=== PATIENT | female | born 1965 | race American Indian/Alaskan Native ===

== ENCOUNTER 2016-07-26 03:33 | Emergency (ER) | payer MEDICAID ==
[2016-07-26 04:52] VITALS: BP 132/73
--- NOTE | 2016-07-26 05:18 | Emergency Department Report ---
ED Lower Extremity HPI - General Chief Complaint: Extremity Injury, Lower Stated Complaint: LF HIP PAIN Time Seen by Provider: 07/26/16 05:12 Source: patient Mode of arrival: Ambulatory Limitations: No Limitations - History of Present Illness Initial Comments: This is a 50-year-old female that presents with left hip pain for the past month. Patient stated she fell on her left head last month but denies any medical attention. Patient stated stated has a normal gait. Denies any numbness or tingling sensation. Patient also states has arthritis to the extremities. Patient denies any chest pain, shortness of breath, hip deformity , nausea vomiting. Patient is well-nourished. Nontoxic appearance. No signs of any distress. MD Complaint: hip injury (left) -: Gradual, month(s) (1) Injury: Hip: Left Type of Injury: other (fall) Place: street/outdoors Severity: moderate Severity scale (0 -10): 10 Improves With: other (pain medication (as per patient)) Worsens With: nothing Context: fall Associated Symptoms: ambulatory. denies: snap/pop sensation, swelling, numbness , tingling, unable to bear weight, able to partially bear weight - Related Data Home Medications Medication Instructions Recorded Confirmed Last Taken Flexeril 10 MG TAB 1 tab PO DAILY 07/26/16 07/26/16 Unknown Pregabalin [Lyrica] 1 tab PO DAILY 07/26/16 07/26/16 Unknown traMADol 50 mg PO DAILY 07/26/16 07/26/16 Unknown Previous Rx's Medication Instructions Recorded Last Taken Type Ibuprofen [Motrin 600 MG tab] 600 mg PO Q8H PRN 5 Days 07/26/16 Unknown Rx Allergies Allergy/AdvReac Type Severity Reaction Status Date / Time No Known Allergies Allergy Unverified 07/26/16 04:53 ED Review of Systems ROS: Stated complaint: LF HIP PAIN Other details as noted in HPI Constitutional: denies: chills, fever Eyes: denies: eye pain, eye discharge, vision change ENT: denies: ear pain, throat pain Respiratory: denies: cough, shortness of breath, wheezing Cardiovascular: denies: chest pain, palpitations Endocrine: no symptoms reported Gastrointestinal: denies: abdominal pain, nausea, diarrhea Genitourinary: denies: urgency, dysuria, discharge Musculoskeletal: denies: back pain, joint swelling, arthralgia Skin: denies: rash, lesions Neurological: denies: headache, weakness, paresthesias Psychiatric: denies: anxiety, depression Hematological/Lymphatic: denies: easy bleeding, easy bruising ED Past Medical Hx - Past Medical History Hx Hypertension: Yes Hx Arthritis: Yes Hx Psychiatric Treatment: Yes (Depression) Additional medical history: Back Pain - Surgical History Past Surgical History?: No - Social History Smoking Status: Current Every Day Smoker Substance Use Type: None - Medications Home Medications: Home Medications Medication Instructions Recorded Confirmed Last Taken Type Flexeril 10 MG TAB 1 tab PO DAILY 07/26/16 07/26/16 Unknown History Ibuprofen [Motrin 600 MG tab] 600 mg PO Q8H PRN 5 Days 07/26/16 Unknown Rx Pregabalin [Lyrica] 1 tab PO DAILY 07/26/16 07/26/16 Unknown History traMADol 50 mg PO DAILY 07/26/16 07/26/16 Unknown History ED Physical Exam - General Limitations: No Limitations General appearance: alert, in no apparent distress - Head Head exam: Present: atraumatic, normocephalic - Eye Eye exam: Present: normal appearance - ENT ENT exam: Present: mucous membranes moist - Neck Neck exam: Present: normal inspection - Respiratory Respiratory exam: Present: normal lung sounds bilaterally. Absent: respiratory distress - Cardiovascular Cardiovascular Exam: Present: regular rate, normal rhythm. Absent: systolic murmur, diastolic murmur, rubs, gallop - GI/Abdominal GI/Abdominal exam: Present: soft, normal bowel sounds - Extremities Exam Extremities exam: Present: normal inspection - Expanded Lower Extremity Exam Left Hip exam: Present: normal inspection, full ROM. Absent: tenderness, swelling, abrasion, laceration, ecchymosis, deformity, crepidus, dislocation, erythema, external rotation, internal rotation, shortening, pelvic stability Upper Leg exam: Present: normal inspection, full ROM. Absent: tenderness, swelling Knee exam: Present: normal inspection, full ROM, full knee extension. Absent: tenderness, swelling Lower Leg exam: Present: normal inspection, full ROM. Absent: tenderness, swelling Ankle exam: Present: normal inspection, full ROM. Absent: tenderness, swelling Foot/Toe exam: Present: normal inspection, full ROM. Absent: tenderness, swelling Neuro vascular tendon exam: Present: no vascular compromise Gait: Positive: observed and normal - Back Exam Back exam: Present: normal inspection, full ROM. Absent: tenderness, CVA tenderness (R), CVA tenderness (L) - Neurological Exam Neurological exam: Present: alert, oriented X3, CN II-XII intact, normal gait - Psychiatric Psychiatric exam: Present: normal affect, normal mood - Skin Skin exam: Present: warm, dry, intact, normal color. Absent: rash ED Course Vital Signs 07/26/16 04:42 Temperature 97.8 F Pulse Rate 84 Respiratory 18 Rate Blood Pressure 132/73 Blood Pressure 132/73 [Left] O2 Sat by Pulse 100 Oximetry ED Lower Extremity MDM - Medical Decision Making ED course: This is a 50-year-old female that presents with chronic left hip pain 1- patient received ibuprofen 600 mg by mouth in ED. 2- x-ray was obtained of the left hip. Results: Normal 3- I notified the patient of the x-ray findings. I instructed the patient to follow up with orthopedic doctor if symptoms persist. 4- at the time of discharge the patient does not seem toxic or ill in appearance. Patient is ambulatory with no gait and amount today. Patient agrees to discharge plan. No further question noted by the patient. 5- patient was prescribed ibuprofen 600 milligrams at time of discharge. Critical care attestation.: If time is entered above; I have spent that time in minutes in the direct care of this critically ill patient, excluding procedure time. ED Disposition Clinical Impression: Hip strain Qualifiers: Encounter type: initial encounter Laterality: left Qualified Code(s): S76.012A - Strain of muscle, fascia and tendon of left hip, initial encounter Disposition: DISCHARGED TO HOME OR SELFCARE Is pt being admited?: No Does the pt Need Aspirin: No Condition: Stable Instructions: Ibuprofen (By mouth) Additional Instructions: Follow-up with an orthopedic in 3-5 days or if symptoms worsen. I have referred you to Dr. Palafox for orthopedic, but you may use anyone. Take ibuprofen 600 mg as prescribed as needed. Prescriptions: Ibuprofen [Motrin 600 MG tab] 600 mg PO Q8H PRN 5 Days PRN Reason: Pain Referrals: PRIMARY MD MERON [Primary Care Provider] - 3-5 Days RADHA PALAFOX MD [Staff Physician] - 3-5 Days [facility] [Outside] - 3-5 Days [facility] [Outside] - 3-5 Days Forms: Work/School Release Form(ED)
--- NOTE | 2016-07-26 05:44 | XRay Report ---
FINAL REPORT PROCEDURE: XR HIP 2-3V LT TECHNIQUE: LEFT hip radiographs, 2 views each, including AP view of the pelvis. HISTORY: fall lt hip pain COMPARISON: No prior studies are available for comparison. FINDINGS: Fracture (s) and/or Dislocation(s): None . Joint space(s): Normal. Soft tissues: Normal. Bone mineralization: Normal. Foreign bodies: None. IMPRESSION: Normal Examination.
== END 2016-07-26 06:19 | disposition home or self-care (01) ==
LOC: ED 03:33
DX: S76.012A Strain of muscle, fascia and tendon of left hip, initial encounter (principal); I10 Essential (primary) hypertension; F17.200 Nicotine dependence, unspecified, uncomplicated; X58.XXXA Exposure to other specified factors, initial encounter; Y93.9 Activity, unspecified; Y92.9 Unspecified place or not applicable; Y99.9 Unspecified external cause status
CPT/HCPCS: 99283

== ENCOUNTER 2016-09-13 15:02 | Emergency (ER) | payer MEDICAID ==
[2016-09-13 15:42] VITALS: BP 122/70
== END 2016-09-14 02:10 | disposition left against medical advice (07) ==
LOC: ED 15:02
DX: R42 Dizziness and giddiness (principal); Z53.21 Procedure and treatment not carried out due to patient leaving prior to being seen by health care provider
CPT/HCPCS: 93005; 93010

== ENCOUNTER 2016-10-10 04:46 | Emergency (ER) | payer MEDICAID ==
[2016-10-10 05:27] LABS: Basophils % (Auto) 1.2 % (0.0-1.8); Eosinophils % (Auto) 3.1 % (0.0-4.3); Hematocrit 34.6 % (30.3-42.9); Hemoglobin 11.5 gm/dl (10.1-14.3); Mean Corpuscular HGB Conc 33 % (30-34); Mean Corpuscular Hemoglobin 28 pg (28-32); Mean Corpuscular Volume 83 fl (79-97); Platelet Count 274 K/mm3 (140-440); Red Blood Count 4.18 M/mm3 (3.65-5.03); Red Cell Distribution Width 14.1 % (13.2-15.2); White Blood Count 7.7 K/mm3 (4.5-11.0)
[2016-10-10 05:41] LABS: INR 1.07 (0.87-1.13)
[2016-10-10 05:48] LABS: Anion Gap 20 mmol/L; BUN/Creatinine Ratio 23.33; Blood Urea Nitrogen 21 mg/dL (7-17); Calcium 9.5 mg/dL (8.4-10.2); Carbon Dioxide 22 mmol/L (22-30); Chloride 102.2 mmol/L (98-107); Glucose 91 mg/dL (65-100); Potassium 4.4 mmol/L (3.6-5.0); Sodium 140 mmol/L (137-145)
[2016-10-10 07:33] VITALS: BP 131/78
== END 2016-10-10 07:33 | disposition left against medical advice (07) ==
LOC: ED 04:46
DX: R07.9 Chest pain, unspecified (principal); Z53.21 Procedure and treatment not carried out due to patient leaving prior to being seen by health care provider
CPT/HCPCS: 36415; 80048; 84484; 85025; 85610; 85730; 93005; 93010

== ENCOUNTER 2017-01-03 00:40 | Emergency (ER) | payer MEDICAID ==
[2017-01-03] MEDS ORDERED: MYCOSTATIN TP ONE (05:22)
[2017-01-03] MEDS ORDERED: LET TOPICAL TP ONE (05:22)
[2017-01-03] MEDS ORDERED: CLEOCIN IM ONE (05:22)
[2017-01-03] MEDS ORDERED: DIFLUCAN PO ONE (05:22)
--- NOTE | 2017-01-03 05:22 | Emergency Department Report ---
- General Chief complaint: Skin Rash Stated complaint: ABD SKIN IRRITATED Time Seen by Provider: 01/03/17 05:18 Source: patient Mode of arrival: Ambulatory Limitations: No Limitations - History of Present Illness Initial comments: Patient reports that she has skin irritation on abdominal area. She denies any abdominal pain. She reports pain to rash side at 9 out of 10 with movement and touch. Denies any nausea vomiting or diarrhea. Denies diabetes. Patient says she has a history of arthritis hypertension and CVA and she is currently in a treatment center. She's had partial hysterectomy in the past. Denies any fever or chills. She says she is wash and air without so but it's not working and has odor to it. Denies any fever or chills. Denies any drainage from site. No medication use. MD complaint: rash Onset/Timin -: week(s) Tetanus Up to Date: yes Severity: severe Severity scale (0 -10): 9 (only with touch) Quality: burning Improves with: rest Worsens with: immobilization, movement Context: other (reports a rash to abdomen.) Associated symptoms: itching Treatments Prior to Arrival: other ( cleaning the area with water without any relief.) - Related Data Home Medications Medication Instructions Recorded Confirmed Last Taken Flexeril 10 MG TAB 1 tab PO DAILY 07/26/16 07/26/16 Unknown Pregabalin [Lyrica] 1 tab PO DAILY 07/26/16 07/26/16 Unknown traMADol 50 mg PO DAILY 07/26/16 07/26/16 Unknown Previous Rx's Medication Instructions Recorded Last Taken Type Cephalexin [Keflex] 500 mg PO Q6HR #40 capsule 01/03/17 Unknown Rx Econazole 1% [Spectazole] 1 applicatio TP BID #1 tube 01/03/17 Unknown Rx Fluconazole [Diflucan TAB] 100 mg PO QDAY #3 tablet 01/03/17 Unknown Rx Ibuprofen [Motrin 600 MG tab] 600 mg PO Q8H PRN 5 Days 01/03/17 Unknown Rx Allergies Allergy/AdvReac Type Severity Reaction Status Date / Time codeine Allergy Itching Verified 01/03/17 00:58 Abscess Boil HPI - HPI Chief Complaint: Skin Rash Stated Complaint: ABD SKIN IRRITATED Time Seen by Provider: 01/03/17 05:18 Home Medications: Home Medications Medication Instructions Recorded Confirmed Last Taken Flexeril 10 MG TAB 1 tab PO DAILY 07/26/16 07/26/16 Unknown Pregabalin [Lyrica] 1 tab PO DAILY 07/26/16 07/26/16 Unknown traMADol 50 mg PO DAILY 07/26/16 07/26/16 Unknown Previous Rx's Medication Instructions Recorded Last Taken Type Cephalexin [Keflex] 500 mg PO Q6HR #40 capsule 01/03/17 Unknown Rx Econazole 1% [Spectazole] 1 applicatio TP BID #1 tube 01/03/17 Unknown Rx Fluconazole [Diflucan TAB] 100 mg PO QDAY #3 tablet 01/03/17 Unknown Rx Ibuprofen [Motrin 600 MG tab] 600 mg PO Q8H PRN 5 Days 01/03/17 Unknown Rx Allergies/Adverse Reactions: Allergies Allergy/AdvReac Type Severity Reaction Status Date / Time codeine Allergy Itching Verified 01/03/17 00:58 ED Review of Systems ROS: Stated complaint: ABD SKIN IRRITATED Other details as noted in HPI Comment: All other systems reviewed and negative Constitutional: no symptoms reported Cardiovascular: denies: chest pain, palpitations, edema, syncope Gastrointestinal: denies: abdominal pain, nausea, vomiting, diarrhea, constipation, hematochezia Skin: rash (abdomen), change in color, pruritus Neurological: denies: headache, weakness, numbness ED Past Medical Hx - Past Medical History Previous Medical History?: Yes Hx Hypertension: Yes Hx CVA: Yes Hx Arthritis: Yes Hx Psychiatric Treatment: Yes (Depression/ SCHIZOPHRENIA) Additional medical history: Back Pain - Surgical History Past Surgical History?: Yes Additional Surgical History: ECTOPIC PREG X 2. PARTIAL HYSTERECTOMY - Family History Family history: hypertension - Social History Smoking Status: Former Smoker Substance Use Type: None - Medications Home Medications: Home Medications Medication Instructions Recorded Confirmed Last Taken Type Flexeril 10 MG TAB 1 tab PO DAILY 07/26/16 07/26/16 Unknown History Pregabalin [Lyrica] 1 tab PO DAILY 07/26/16 07/26/16 Unknown History traMADol 50 mg PO DAILY 07/26/16 07/26/16 Unknown History Cephalexin [Keflex] 500 mg PO Q6HR #40 capsule 01/03/17 Unknown Rx Econazole 1% [Spectazole] 1 applicatio TP BID #1 tube 01/03/17 Unknown Rx Fluconazole [Diflucan TAB] 100 mg PO QDAY #3 tablet 01/03/17 Unknown Rx Ibuprofen [Motrin 600 MG tab] 600 mg PO Q8H PRN 5 Days 01/03/17 Unknown Rx ED Physical Exam - General Limitations: No Limitations General appearance: alert, in no apparent distress - Head Head exam: Present: atraumatic, normocephalic, normal inspection - Eye Eye exam: Present: normal appearance, PERRL, EOMI. Absent: periorbital swelling , periorbital tenderness Pupils: Present: normal accommodation - ENT ENT exam: Present: normal exam, normal orophraynx, mucous membranes moist, TM's normal bilaterally, normal external ear exam - Neck Neck exam: Present: normal inspection, full ROM. Absent: tenderness, meningismus, lymphadenopathy - Respiratory Respiratory exam: Present: normal lung sounds bilaterally. Absent: respiratory distress, wheezes, rales, rhonchi, stridor, chest wall tenderness, accessory muscle use, decreased breath sounds, prolonged expiratory - Cardiovascular Cardiovascular Exam: Present: regular rate, normal rhythm, normal heart sounds. Absent: systolic murmur, diastolic murmur - GI/Abdominal GI/Abdominal exam: Present: soft, tenderness (to rash sided abdominal folds.), normal bowel sounds. Absent: distended, guarding, rebound, rigid, hypoactive bowel sounds, organomegaly, mass, bruit, pulsatile mass, hernia - Extremities Exam Extremities exam: Present: normal inspection, full ROM, normal capillary refill , other (no clubbing cyanosis or edema. +2 pulses to all extremities. No neurovascular compromise). Absent: tenderness, pedal edema, joint swelling, calf tenderness - Back Exam Back exam: Present: normal inspection, full ROM. Absent: tenderness, CVA tenderness (R), CVA tenderness (L), muscle spasm, paraspinal tenderness, vertebral tenderness, rash noted - Neurological Exam Neurological exam: Present: alert, oriented X3, normal gait, reflexes normal. Absent: motor sensory deficit - Psychiatric Psychiatric exam: Present: normal affect, normal mood - Skin Skin exam: Present: warm, dry, intact, rash, erythema, abrasion - Expanded Skin Exam Expanded Type of lesion: Present: rash, abrasion Distribution of rash: abdomen (abdominal folds ,lower abdomen) Description of rash: Present: tenderness, erythematous, other (fungal-looking rash with superimposed bacterial infection. Area is malodorous.). Absent: vesicular, blisters, confluent, bullous, petechial, crusting, discharge, fluctuant, indurated ED Course Vital Signs 01/03/17 01/03/17 00:59 04:16 Temperature 99.3 F Pulse Rate 81 82 Respiratory 20 16 Rate Blood Pressure 118/76 131/90 O2 Sat by Pulse 97 100 Oximetry Vital Signs 01/03/17 01/03/17 01/03/17 00:59 04:16 06:30 Temperature 99.3 F 98.9 F Pulse Rate 81 82 Respiratory 20 16 Rate Blood Pressure 118/76 131/90 O2 Sat by Pulse 97 100 Oximetry - Reevaluation(s) Reevaluation #1: 01/03/17 06:53 Rash to abdomen cleansed with soap and water and nystatin cream mixed with LET placed the side. She reports that it felt better and pain is better. ED Medical Decision Making - Medical Decision Making ED course: She presented emergency room complaining of rash that's burning in and she's been trying to clean site with water without any relief. She is not diabetic and says rashes been there for one week. He denies any fever or chills. Denies any traumatic injuries. Patient has large abdomen with fold. Physical findings are fungal rash was superimposed bacterial infection which is malodorous. No drainage noted. Area cleansed with soap and water and nystatin cream mixed with LET placed to site. She reports the pain has decreased and there are felt better. She says she is ready to go back to treatment Center. Patient given Diflucan 150 mg po and clindamycin 600 im in emergency room for fungal and bacterial infection. I explained to her that she will need to take antifungal medication along with antibacterial medication and use antifungal cream to apply to affected area twice daily. I instructed patient if there is not getting better she will need to follow up with her primary care physician. Crit patient says she has a primary care doctor at [place] and I discussed with her that she needs to follow-up with primary care on Saturday. Patient discharged home with prescription for naproxen, Econazole cream, Diflucan and Keflex. Critical care attestation.: If time is entered above; I have spent that time in minutes in the direct care of this critically ill patient, excluding procedure time. ED Disposition Clinical Impression: Fungal infection of skin of abdomen, Cellulitis, abdominal wall Disposition: DC-01 TO HOME OR SELFCARE Is pt being admited?: No Does the pt Need Aspirin: No Condition: Stable Instructions: Cellulitis (ED), Tinea Corporis (ED) Additional Instructions: Please follow-up with your primary care physician at [place] on 01/07/2017 Take antibiotic and antifungal as prescribed He affected area clean and dry If you develop fever and worsening in symptoms or return to the emergency room Please apply antifungal cream twice daily until healed Prescriptions: Cephalexin [Keflex] 500 mg PO Q6HR #40 capsule Econazole 1% [Spectazole] 1 applicatio TP BID #1 tube Fluconazole [Diflucan TAB] 100 mg PO QDAY #3 tablet Ibuprofen [Motrin 600 MG tab] 600 mg PO Q8H PRN 5 Days PRN Reason: Pain Referrals: [facility] [Other] - 01/07/17 Forms: Accompanied Note, Work/School Release Form(ED)
[2017-01-03 07:36] VITALS: BP 124/82
== END 2017-01-03 07:35 | disposition home or self-care (01) ==
LOC: ED 00:40
DX: B49 Unspecified mycosis (principal); L03.311 Cellulitis of abdominal wall; I10 Essential (primary) hypertension
CPT/HCPCS: 96372